=== PATIENT | male | born 1940 | race Caucasian/White ===

== ENCOUNTER 2017-09-20 16:06 | Emergency (ER) | payer OTHER, MEDICARE ==
[~2017-09-20] VITALS: Ht 170.2 cm; Wt 72.6 kg
[2017-09-20 16:12] VITALS: BP 134/85
== END 2017-09-20 17:06 ==
LOC: ER 16:07
DX: Z48.00 Encounter for change or removal of nonsurgical wound dressing (principal); Z85.828 Personal history of other malignant neoplasm of skin; Z98.890 Other specified postprocedural states
CPT/HCPCS: 99283; A4606; Z7610

== ENCOUNTER 2018-02-15 12:38 | Emergency (ER) | payer MEDICARE, OTHER ==
[~2018-02-15] VITALS: Ht 180.3 cm; Wt 68.0 kg
--- NOTE | 2018-02-15 12:40 | NUR ---
PATIENT TO ED DT RIGHT FLANK PAIN NOTED THIS MORNING WHEN HE LEANED BACK AGAINST A CHAIR. 02/17, ACHING AT THIS TIIME. DENIES NAUSEA AND VOMITTING. AFEBRILE. VSS
--- NOTE | 2018-02-15 15:05 | NUR ---
Patient discharged to home in stable condition. Written and verbal after care instructions given. Patient verbalizes understanding of instruction.
[2018-02-15 15:06] VITALS: BP 137/67
== END 2018-02-15 15:08 | disposition home or self-care (01) ==
LOC: ER 12:39
DX: R07.81 Pleurodynia (principal); Z60.2 Problems related to living alone; Z98.890 Other specified postprocedural states
CPT/HCPCS: 71100-TC; A4606; Z7610

== ENCOUNTER 2018-09-22 22:27 | Emergency (ER) | payer MEDICARE, OTHER ==
[~2018-09-22] VITALS: Ht 177.8 cm; Wt 65.8 kg
[2018-09-22 22:37] VITALS: BP 152/92
== END 2018-09-23 00:50 | disposition home or self-care (01) ==
LOC: ER 22:34
DX: J06.9 Acute upper respiratory infection, unspecified (principal); Z98.890 Other specified postprocedural states; Z59.0 Homelessness; Z85.828 Personal history of other malignant neoplasm of skin
CPT/HCPCS: 71045-TC; A4606; Z7610